=== PATIENT | male | born 1975 | race Caucasian/White ===

== ENCOUNTER 2019-12-19 09:22 | Emergency (ER) | payer BC, SELFPAY ==
[2019-12-19 09:30] VITALS: BP 150/102; PULSE 104; RESP 19; O2SAT 98; BMI 34.7
[2019-12-19 09:40] VITALS: BP 160/107; PULSE 104; RESP 16; TEMP 36.8; O2SAT 97; BMI 34.7
--- NOTE | 2019-12-19 10:18 | HMH.EDUTC ---
[facility] [facility] [place] Clinical Impression: Infected corneal abrasion Qualifiers: Encounter type: initial encounter Laterality: right Qualified Code(s): S05.01XA - Injury of conjunctiva and corneal abrasion without foreign body, right eye, initial encounter Disposition: Home, Self-Care Condition on Discharge: Good Instructions: DI for Corneal Abrasion, Corneal Abrasion, How to Use Eye Ointments and Gels Additional Instructions: Follow up with the eye doctor at [facility] this morning at 11:30 am. Follow their instructions from there. I did send in a prescription for erythromycin eye ointment, but follow their directions if they prescribe something different. Follow up with your primary care physician. GO TO THE ER FOR ANY WORSENING SYMPTOMS OR CONCERNS, ESPECIALLY ANY WORSENING EYE PROBLEMS OR ISSUES Prescriptions: Erythromycin Base [Erythromycin 3.5gm opth oinment] 1 cm EYE-RIGHT Q4H 7 Days #1 tube Transmission Status: Received by [id number] Referrals: PCP,No [Primary Care Provider] - Forms: Work/School Release Time of Disposition: 10:49 Medical Decision Making - Medical Records Medical records reviewed: No: I reviewed the patient's medical records. - Ferny Inquiry Pt receiving controlled substance: No Vital Signs: 12/19/19 09:30 12/19/19 09:40 12/19/19 10:53 Temperature 98.3 F 98.3 F Temperature Source Oral Pulse Rate 104 H Pulse Rate [Left Radial] 104 H 104 H Respiratory Rate 19 16 16 Blood Pressure 160/107 H Blood Pressure [Right Arm] 150/102 H 160/107 H Blood Pressure Mean [Right Arm] 118 124 Blood Pressure Source [Right Arm] Automatic Cuff Blood Pressure Position [Right Arm] Sitting 02 Sat by Pulse Oximetry 98 97 Oxygen Delivery Method Room Air Room Air Orders (Tests/Meds): ED MEDICATIONS Discontinued Medications Generic Name Dose Route Start Last Admin Trade Name Freq PRN Reason Stop Dose Admin Ceftriaxone Sodium 1 gm 12/19/19 09:59 12/19/19 10:17 Ceftriaxone 1gm Vial IM 12/19/19 10:00 1 gm ONCE ONE Administration Protocol Erythromycin 1 gm 12/19/19 10:51 12/19/19 10:50 Erythromycin Base 1 Gm Oint...G. OP 12/19/19 10:52 1 gm ONCE ONE Administration Eye Irrigation Solution 120 ml 12/19/19 10:51 12/19/19 10:50 Eye Wash Irrigation Soln 118ml Bottle OP 12/19/19 10:52 1 applicatio ONCE ONE Administration Ibuprofen 800 mg 12/19/19 10:48 12/19/19 10:51 Ibuprofen 400 Mg Tablet PO 12/19/19 10:49 800 mg ONCE ONE Administration Lidocaine HCl 0 ml 12/19/19 09:59 12/19/19 10:17 Lidocaine 1% 5ml Pf Vial IM 12/19/19 10:00 2.1 ml ONCE ONE Administration Tetracaine HCl 0 ml 12/19/19 10:51 12/19/19 10:50 Tetracaine 0.5% Opth Steff 15ml OP 12/19/19 10:52 2 drop ONCE ONE Administration Medical Decision Narrative: Eye exam with dye and wood's lamp shows a corneal abrasion at the 1:00 area in relation to the pupil. It is not over the pupil, but out toward the iris border. Erythromycin ointment applied to the eye. I called the [facility], He is got straight there for further evaluation and treatment by opthalmology. [facility] [place] [facility] [place] - General Stated complaint: right eye swollen and red Time Seen by Provider: 12/19/19 09:30 Mode of Arrival: Ambulatory Source of Information: Patient Limitations: No Limitations Description of Symptoms (Recalled from Triage Doc. by RN): PATIENT STATES WHILE AT WORK YESTERDAY, HE STARTED HAVING PAIN IN RIGHT EYE APPROX 1400. TODAY EYE IS SWOLLEN, PAINFUL, WITH GREEN DRAINAGE. PATIENT RATING PAIN 10/10 HEENT Symptoms (Recalled from RN notes): Yes Resp Symptoms (Recalled from RN notes): No Skin Symptoms (Recalled from RN notes): No MS Symptoms (Recalled from RN notes): No Functional Status (Recalled from RN notes): WNL - History of Present Illness Provider Complaint: He states that since yesterday he has had redness and drainage from his right eye
[2019-12-19 10:53] VITALS: BP 160/107; PULSE 104; RESP 16; TEMP 36.8; O2SAT 97
== END 2019-12-19 10:55 | disposition home or self-care (01) ==
PROVIDERS: Emergency Provider Nurse Practitioner Family
DX: S05.01XA Injury of conjunctiva and corneal abrasion without foreign body, right eye, initial encounter (principal); F17.210 Nicotine dependence, cigarettes, uncomplicated; W45.8XXA Other foreign body or object entering through skin, initial encounter; Y92.69 Other specified industrial and construction area as the place of occurrence of the external cause; Y99.0 Civilian activity done for income or pay
CPT/HCPCS: 96372; 99201